=== PATIENT | male | born 1955 | race Caucasian/White ===

== ENCOUNTER 2022-08-06 14:20 | Emergency (ER) | payer MEDICARE, SELFPAY ==
[2022-08-06] VITALS (32 sets, daily range): BP systolic 107–148; BP diastolic 69–87; PULSE 75–95; RESP 16–31; TEMP 36.6; O2SAT 92–100
--- NOTE | ~2022-08-06 | XR_ITS ---
EXAMINATION: XR chest 1V portable INDICATION: Chest pain TECHNIQUE: Portable AP chest at 1508 hours COMPARISON: None available FINDINGS: There are patchy opacities throughout all lung zones. No pleural effusion or pneumothorax. The cardiomediastinal silhouette is normal for technique. IMPRESSION: 1. Diffuse lung disease, consistent with atelectasis versus pneumonia versus pulmonary edema. Reviewed, dictated and finalized at location A. IMPRESSION: 1. Diffuse lung disease, consistent with atelectasis versus pneumonia versus pu lmonary edema.
--- NOTE | ~2022-08-06 | CT_ITS ---
EXAMINATION: CT diagnostic chest wo con DATE: 08/06/2022 16:37 INDICATION: Left upper back pain TECHNIQUE: Computed tomography (CT) of the chest was performed without intravenous contrast. The dose -length product (DLP) was 382.70 mGy-cm. Automated exposure control and iterative reconstruction tech nique were employed. COMPARISON: None FINDINGS: The lungs are free of acute opacities. No pleural effusion or pneumothorax. 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 Calci fied coronary artery atherosclerosis is noted. Calcified pulmonary nodules and calcified right hilar and mediastinal lymph nodes are consistent with old granulomatous disease. No pathologically enlarge d thoracic lymph nodes are identified. The heart size is normal. IMPRESSION: 1. No CT correlate for the patient's symptoms. 2. 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 Reviewed, dictated and finalized at location A.
--- NOTE | 2022-08-06 14:49 | ED.BACK ---
HPI - Back Pain/Injury General Chief Complaint: Back Pain/Injury Stated Complaint: BACK PAIN WHEN HE BREATHES Time Seen by Provider: 08/06/22 14:46 Source: patient Mode of arrival: ambulatory Limitations: no limitations History of Present Illness HPI Narrative: 66 years old white male came to the emergency room by private car complaining of about back pain with deep breathing. Patient got up from sleep at 5 AM and was doing fine, then noticed about back pain mainly at the left side when he takes deep breath. No pain with normal breathing. He denies any fever, chills, nausea, vomiting, shortness of breath, chest pain, headache, abdominal pain, recent new physical activities. Currently patient laying down in bed, comfortable, asymptomatic. But when he takes deep breath trigger pressure type pain at the left upper back. Patient denies any history of diabetes, hypertension, hyperlipidemia, heart attack or stroke. Denies family history of coronary artery disease. Related Data Home Medications Medication Instructions Recorded Confirmed cholecalciferol (vitamin D3) 25 25 mcg PO DAILY 07/09/21 06/18/22 mcg (1,000 unit) capsule Allergies Allergy/AdvReac Type Severity Reaction Status Date / Time No Known Allergies Allergy Verified 06/18/22 15:18 Review of Systems Review of Systems: All systems reviewed & are unremarkable except as noted in HPI and below PMFSH Past Medical History Medical History Allergies Gouty arthritis Surgical History Surgical History Skippers teeth removed Family History Family History Son Hypertension Social History Social History Smoking status: Never smoker Second hand tobacco smoke exposure: No Alcohol intake: current Drinks per week: 10 Alcohol use details: beer Substance use: never Substance use type: does not use Additional occupation/education comments: [employer] Gender identity (if verbalized by the patient): Male Spiritual care concerns: No Agree to blood products: Yes Exam Narrative: General appearance: Well-developed, well-nourished Skin: Normal color Head: Normocephalic, nontraumatic Eyes: Clear conjunctiva ENT: Oropharynx normal, ears normal, nose normal Neck: Supple, nontender Chest and respiratory: Airway patent, no respiratory distress, no accessory muscle use Heart: Regular rate/rhythm Abdomen: Soft, nontender, no organomegaly, quiet bowel sounds Vascular: Normal peripheral pulses, normal capillary refill. Musculoskeletal: Normal range of motion, nontender back Neurologic: Alert and oriented ?3, VEST BUSHELER is normal as tested, no gross motor deficit Course Reevaluation(s) Reevaluation #1: Currently patient is asymptomatic, denying any pain. Patient is telling me that he remembered that yesterday he pushed a heavy door of the cooler which could be the underlying cause of his upper back pain. Date: 08/06/22 Time: 17:59 Consultations Consultation #1: DR SALCEDO, cardiothoracic surgeon at [facility], recommended to transfer patient to [facility] ED for further evaluation Date: 08/06/22 Time: 17:46 Consultation #2: DR GATICA, [facility] ED Date: 08/06/22 Time: 17:53 Vital Signs Vital signs: Vital Signs Temperature 36.6 C 08/06/22 14:37 Pulse Rate 87 08/06/22 14:37 Respiratory Rate 16 08/06/22 14:37 Blood Pressure 139/82 08/06/22 14:37 Pulse Oximetry 99 08/06/22 14:37 Oxygen Delivery Room Air 08/06/22 14:37
--- NOTE | 2022-08-06 14:50 | ECG_ITS ---
Measurements Intervals [place] Rate: 79 P: 12 GA: 221 QRS: -18 QRSD: 93 T: 36 QT: 365 QTc: 418 Interpretive Statements SINUS RHYTHM WITH FIRST DEGREE AV BLOCK BORDERLINE ECG NO PREVIOUS ECG AVAILABLE FOR COMPARISON Electronically Signed On 08-06-2022 20:08:47 CDT by Mendel Crawford D.O.
[2022-08-06] MEDS: ASPIRIN 81 MG CHEWABLE TABLET 324 MG PO (15:29)
[2022-08-06] MEDS: NITROGLYCERIN SL 0.4 MG TABLET SUBLINGUAL (15:30)
[2022-08-06 15:31] LABS: Basophils Percent Auto 0.2 % (0.2-1.2); Eosinophils Absolute Auto 0.2 K/mm3 (0-0.3); Eosinophils Percent Auto 1.7 % (0-4.4); Hematocrit 46.9 % (42.0-52.0); Hemoglobin 15.6 g/dL (14.0-18.0); Immature Granulocyte Absolute 0.02 K/mm3 (0.00-0.031); Immature Granulocyte Percent A 0.2 % (0-0.5); Lymphocytes Absolute Auto 1.88 K/mm3 (0.9-3.2); Lymphocytes Percent Auto 20.1 % (18.3-44.2); Mean Corpuscular HGB Conc 33.3 g/dl (32-36); Mean Corpuscular Hemoglobin 32.3 pg (26-34); Mean Corpuscular Volume 97.1 fl (80-100); Mean Platelet Volume 10.7 fl (7.4-10.4); Monocytes Percent Auto 11.1 % (2.6-8.5); Neutrophils Absolute Auto 6.2 K/mm3 (1.3-6.7); Neutrophils Percent Auto 66.7 % (45.5-73.1); Platelet Count Result 237 k/mm3 (150-375); Red Blood Count 4.83 M/mm3 (4.6-6.20); Red Cell Distribution Width 13.3 % (11.5-14.5); White Blood Count 9.4 K/mm3 (4.5-10.0)
[2022-08-06 15:45] LABS: Alanine Aminotransferase 26 U/L (6-50); Albumin Level 4.8 g/dL (3.5-5.1); Alkaline Phosphatase 27 U/L (38-126); Anion Gap 14 mmol/L (8-16); Aspartate Amino Transferase 29 U/L (17-59); Bilirubin,Total 0.6 mg/dL (0.2-1.3); Blood Urea Nitrogen 17 mg/dL (9-20); Calcium 9.1 mg/dL (8.4-10.2); Carbon Dioxide 26 mmol/L (22-30); Chloride 98 mmol/L (98-107); Estimated CRCL calculation 84 ml/min; Estimated Glomerular Filt Rate > 60; Glucose 94 mg/dL (65-110); Potassium 4.2 mmol/L (3.4-5.0); Sodium 138 mmol/L (137-145)
[2022-08-06 15:56] LABS: NT Pro B Type Natriuretic Pept 24 pg/mL (5-100); Troponin I < 0.012 ng/mL (0.000-0.034)
[2022-08-06 16:00] LABS: Partial Thromboplastin Time 30.8 SECONDS (22.3-36.8)
[2022-08-06 16:04] LABS: D Dimer 0.33 ug/mL (<0.48)
--- NOTE | 2022-08-06 16:51 | PC.NURSE ---
Patient reports no pain at this time.
--- NOTE | 2022-08-06 17:46 | PC.NURSE ---
[facility] accepted transfer to [facility] ETA 20p Trip # [id number]
[2022-08-06] MEDS: METOPROLOL TARTRATE 12.5 MG TABLET PO (17:59)
--- NOTE | 2022-08-06 18:05 | PC.NURSE ---
Patient aware of transfer to [facility]. Report given to NIDA Rudolph in the ED.
[2022-08-06 18:44] LABS: Troponin I < 0.012 ng/mL (0.000-0.034)
== END 2022-08-06 19:15 | disposition short-term general hospital (02) ==
PROVIDERS: Emergency Provider Emergency Medicine; PCP Family Medicine
DX: I71.2 Thoracic aortic aneurysm, without rupture (principal); M10.9 Gout, unspecified; I44.0 Atrioventricular block, first degree; J98.4 Other disorders of lung
CPT/HCPCS: 36415; 71045; 71250; 80053; 83880; 84484; 85025; 85380; 85610; 85730; 93005; 99285; A9270